=== PATIENT | female | born 1980 | race Caucasian/White ===

== ENCOUNTER 2019-07-05 15:21 | Emergency (ER) | payer BC ==
[2019-07-05] MEDS ORDERED: methylPREDNISolone Sodium Succinate 125 MG/2 ML SDV IM ONE (15:30)
[2019-07-05] MEDS ORDERED: Albuterol/Ipratropium 3.0-0.5 MG/3 ML Neb Soln NEB ONE (15:30)
--- NOTE | 2019-07-05 15:37 | EDM.PDOC ---
ED HPI GENERAL MEDICAL PROBLEM - General Chief Complaint: Respiratory Problem Stated Complaint: SHORTNESS OF BREATH, COUGH, VOMITING Time Seen by Provider: 07/05/19 15:35 Source of Information: Reports: Patient - History of Present Illness INITIAL COMMENTS - FREE TEXT/NARRATIVE: HISTORY AND PHYSICAL: History of present illness: []Patient presents with cough and shortness of breath sensation however is in no apparent distress She was seen at replaced by [facility] initially provided Z-Wade and albuterol for bronchitis, she has some improvement of symptoms however not fully resolved she does have a sinusitis on the left maxillary sinuses well with continued tenderness on palpation no fever nausea vomiting chills sweats no chest pain headache dizziness palpitation no bowel or urine symptoms Review of systems: As per history of present illness and below otherwise all systems reviewed and negative. Past medical history: As per history of present illness and as reviewed below otherwise noncontributory. Surgical history: As per history of present illness and as reviewed below otherwise noncontributory. Social history: No reported history of drug or alcohol abuse. Family history: As per history of present illness and as reviewed below otherwise noncontributory. Physical exam: HEENT: Atraumatic, normocephalic, pupils reactive, negative for conjunctival pallor or scleral icterus, mucous membranes moist, throat clear, neck supple, nontender, trachea midline. sinus tenderness maxillary sinus left greater than right Lungs: Clear to auscultation, breath sounds equal bilaterally, chest nontender. Heart: S1S2, regular, negative for clicks, rubs, or JVD. Abdomen: Soft, nondistended, nontender. Negative for masses or hepatosplenomegaly. Negative for costovertebral tenderness. Pelvis: Stable nontender. Genitourinary: Deferred. Rectal: Deferred. Extremities: Atraumatic, negative for cords or calf pain. Neurovascular unremarkable. Neuro: Awake, alert, oriented. Cranial nerves II through XII unremarkable. Cerebellum unremarkable. Motor and sensory unremarkable throughout. Exam nonfocal. Diagnostics: [Chest 1 view ] Therapeutics: [ Levaquin 750 by mouth daily 10 no refill Prednisone 20 mg by mouth daily #5 no refill [id number] symptomatic therapy Continue albuterol Phenergan with codeine impression: [] sinus situs/bronchitis Definitive disposition and diagnosis as appropriate pending reevaluation and review of above. chest Pain Score (Numeric/FACES): 5 - Related Data Allergies Allergy/AdvReac Type Severity Reaction Status Date / Time No Known Allergies Allergy Verified 07/05/19 15:28 Home Meds: Home Meds Albuterol [Proventil Neb Soln] 2 puff INH ASDIRECTED PRN 07/05/19 [History] Azithromycin [Zithromax] 1 dose PO ASDIRECTED 07/05/19 [History] Furosemide 40 mg PO DAILY 07/05/19 [History] Levothyroxine [Levothroid] 137 mcg PO DAILY 07/05/19 [History] Loratadine 10 mg PO DAILY 07/05/19 [History] Losartan [Cozaar] 50 mg PO DAILY 07/05/19 [History] Metoprolol Tartrate 100 mg PO DAILY 07/05/19 [History] Omeprazole 40 mg PO DAILY 07/05/19 [History] Potassium Chloride 10 meq PO DAILY 07/05/19 [History] ED ROS GENERAL - Review of Systems Review Of Systems: See Below ED EXAM, GENERAL - Physical Exam Exam: See Below Course - Vital Signs Last Recorded V/S: Last Vital Signs Temp 96.9 F 07/05/19 15:25 Pulse 93 07/05/19 15:25 Resp 18 07/05/19 15:25 BP 144/105 H 07/05/19 15:25 Pulse Ox 97 07/05/19 15:25 - Orders/Labs/Meds Orders: Active Orders 24 hr Category Date Time Status RT Aerosol Therapy [RC] ASDIRECTED Care 07/05/19 15:30 Active Chest 1V Frontal [CR] Stat Exams 07/05/19 15:30 Taken Meds: Medications Discontinued Medications Generic Name Dose Route Start Last Admin Trade Name Freq PRN Reason Stop Dose Admin Albuterol/Ipratropium 3 ml 07/05/19 15:30 07/05/19 15:40 Duoneb 3.0-0.5 Mg/3 Ml NEB 07/05/19 15:31 3 ml ONETIME ONE Administration Methylprednisolone Sodium Succinate 125 mg 07/05/19 15:30 07/05/19 15:52 Solu-Medrol IM 07/05/19 15:31 125 mg ONETIME ONE Administration Prednisone 20 mg 07/05/19 15:44 07/05/19 15:51 Prednisone PO 07/05/19 15:45 20 mg ONETIME ONE Administration Departure - Departure Time of Disposition: 15:56 Disposition: Home, Self-Care 01 Condition: Good Clinical Impression: Sinusitis, Bronchitis - Discharge Information Referrals: PCP,Unknown [Primary Care Provider] - Forms: ED Department Discharge Additional Instructions: Medication as prescribed Consider Kendra pot daily Zyrtec daily 10 mg Continue albuterol as needed Follow up with primary care in 2 weeks sooner as needed [facility] - Primary Care [address] [place] [id number] The following information is given to patients seen in the emergency department who are being discharged to home. This information is to outline your options for follow-up care. We provide all patients seen in our emergency department with a follow-up referral. The need for follow-up, as well as the timing and circumstances, are variable depending upon the specifics of your emergency department visit. If you don't have a primary care physician on staff, we will provide you with a referral. We always advise you to contact your personal physician following an emergency department visit to inform them of the circumstance of the visit and for follow-up with them and/or the need for any referrals to a consulting specialist. The emergency department will also refer you to a specialist when appropriate. This referral assures that you have the opportunity for follow-up care with a specialist. All of these measure are taken in an effort to provide you with optimal care, which includes your follow-up. Under all circumstances we always encourage you to contact your private physician who remains a resource for coordinating your care. When calling for follow-up care, please make the office aware that this follow-up is from your recent emergency room visit. If for any reason you are refused follow-up, please contact the [facility] emergency department at and asked to speak to the emergency department charge nurse. - My Orders Last 24 Hours: My Active Orders 07/05/19 15:30 RT Aerosol Therapy [RC] ASDIRECTED Chest 1V Frontal [CR] Stat - Assessment/Plan Last 24 Hours: My Active Orders 07/05/19 15:30 RT Aerosol Therapy [RC] ASDIRECTED Chest 1V Frontal [CR] Stat
[2019-07-05] MEDS ORDERED: predniSONE 20 MG Tab PO ONE (15:44)
--- NOTE | 2019-07-05 16:00 | CR ---
INDICATION: Pain, shortness of breath. TECHNIQUE: AP portable view of the chest. COMPARISON: None FINDINGS: Cardiomediastinal silhouette: Within limits. Lungs and pleural space: Lungs are clear. No pleural effusion. No pneumothorax. IMPRESSION: No acute pulmonary abnormality. Dictated by Heather Crystal MD @ 07/05/2019 3:58:10 PM Dictated by: Heather Crystal MD @ 07/05/2019 15:58:14 (Electronically Signed)
== END 2019-07-05 16:20 | disposition home or self-care (01) ==
LOC: MW.ED 15:21
DX: J40 Bronchitis, not specified as acute or chronic (principal); J32.9 Chronic sinusitis, unspecified; Z79.899 Other long term (current) drug therapy
CPT/HCPCS: 71045; 94640; 96372; 99283; A9270; J2930; J7620-GY

== ENCOUNTER 2019-10-19 17:50 | Emergency (ER) | payer BC ==
[2019-10-19] MEDS ORDERED: Ketorolac 60 MG/2 ML SDV IM ONE (19:28)
--- NOTE | 2019-10-19 19:36 | EDM.PDOC ---
ED HPI GENERAL MEDICAL PROBLEM - General Chief Complaint: Lower Extremity Injury/Pain Stated Complaint: SLIP AND FALL ON ICE Time Seen by Provider: 10/19/19 18:42 Source of Information: Reports: Patient History Limitations: Reports: No Limitations - History of Present Illness INITIAL COMMENTS - FREE TEXT/NARRATIVE: HISTORY AND PHYSICAL: History of present illness: Patient is a 39-year-old female who presents to the ED today with concern of right knee injury and low back pain after a fall that occurred when slipping on the ice just prior to arrival to the ED. Patient states she was walking to the mailbox when she had slipped. Patient states she landed on her right knee and then twisted her low back and caught herself on her side. Patient states she did not directly hit her low back but does feel as if her low back muscles are "spasming." Patient states she did not hit her head and she did not lose consciousness. Patient states she has a history of hypertension and hypothyroidism but denies any other health history. Patient denies any loss or retention of bowel bladder function or saddle anesthesia. Patient denies fever, chills, chest pain, shortness of breath, or cough. Denies headache, neck stiff ness, change in vision, syncope, or near syncope. Denies nausea, vomiting, abdominal pain, diarrhea, constipation, or dysuria. Has not noted any blood in urine or stool. Patient has been eating and drinking appropriately. Review of systems: As per history of present illness and below otherwise all systems reviewed and negative. Past medical history: As per history of present illness and as reviewed below otherwise noncontributory. Surgical history: As per history of present illness and as reviewed below otherwise noncontributory. Social history: See social history for further information Family history: As per history of present illness and as reviewed below otherwise noncontributory. Physical exam: General: Patient is alert, oriented, and in no acute distress. Patient sitting comfortably on exam table. HEENT: Atraumatic, normocephalic, pupils equal and reactive bilaterally, negative for conjunctival pallor or scleral icterus, mucous membranes moist, TMs normal bilaterally, throat clear, neck supple, nontender, trachea midline. No drooling or trismus noted. No meningeal signs. No hot potato voice noted. Lungs: Clear to auscultation, breath sounds equal bilaterally, chest nontender. Heart: S1S2, regular rate and rhythm without overt murmur Abdomen: Soft, nondistended, nontender. Negative for masses or hepatosplenomegaly. Negative for costovertebral tenderness. Pelvis: Stable nontender. Genitourinary: Deferred. Rectal: Deferred. Skin: Intact, warm, dry. No lesions or rashes noted. Extremities: Negative for cords or calf pain. Neurovascular unremarkable. There is a superficial abrasion of the right knee without bleeding. Patient has full range of motion of bilateral lower extremities without pain or difficulty. No obvious deformity of bilateral lower extremities. DP/PT pulses intact bilaterally with capillary refill less than 2 seconds. No obvious deformity of the complete spine. No step-offs, crepitus, or point tenderness to palpation of the complete spine. Patient does have mild to moderate discomfort with palpation of the right sided paraspinous muscle of the lumbar spine. Neuro: Awake, alert, oriented. Cranial nerves II through XII unremarkable. Cerebellum unremarkable. Motor and sensory unremarkable throughout. Exam nonfocal. Notes: Discussed importance for follow-up with a primary care provider. Voices understanding and is agreeable to plan of care. Denies any further questions or concerns at this time. Diagnostics: Lumbar XR, knee XR Therapeutics: Toradol, Norflex, Knee sleeve Prescription: Diclofenac, Flexeril Impression: Right knee contusion Low back pain/strain Plan: 1. Rest, ice, elevate the affected extremity and low back. You can apply ice and or heat 15 minutes on, 15 minutes off. 2. Tylenol and/or Ibuprofen as directed for pain management or discomfort. 3. Follow up with the primary care provider as discussed. Return to the ED as needed and as discussed. Definitive disposition and diagnosis as appropriate pending reevaluation and review of above. Back, r knee Pain Score (Numeric/FACES): 9 - Related Data Allergies Allergy/AdvReac Type Severity Reaction Status Date / Time No Known Allergies Allergy Verified 10/19/19 18:33 Home Meds: Home Meds Albuterol [Proventil Neb Soln] 2 puff INH ASDIRECTED PRN 07/05/19 [History] Azithromycin [Zithromax] 1 dose PO ASDIRECTED 07/05/19 [History] Furosemide 40 mg PO DAILY 07/05/19 [History] Levothyroxine [Levothroid] 137 mcg PO DAILY 07/05/19 [History] Loratadine 10 mg PO DAILY 07/05/19 [History] Losartan [Cozaar] 50 mg PO DAILY 07/05/19 [History] Metoprolol Tartrate 100 mg PO DAILY 07/05/19 [History] Omeprazole 40 mg PO DAILY 07/05/19 [History] Potassium Chloride 10 meq PO DAILY 07/05/19 [History] Past Medical History HEENT History: Reports: None Cardiovascular History: Reports: Hypertension Respiratory History: Reports: Bronchitis, Recurrent Gastrointestinal History: Reports: None Genitourinary History: Reports: None [employer]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 Musculoskeletal History: Reports: None Neurological History: Reports: None Psychiatric History: Reports: None Endocrine/Metabolic History: Reports: None Hematologic History: Reports: None Immunologic History: Reports: None Oncologic (Cancer) History: Reports: None Dermatologic History: Reports: None - Infectious Disease History Infectious Disease History: Reports: None - Past Surgical History Head Surgeries/Procedures: Reports: None HEENT Surgical History: Reports: Adenoidectomy, Myringotomy w Tube(s), Tonsillectomy Cardiovascular Surgical History: Reports: None Respiratory Surgical History: Reports: None GI Surgical History: Reports: Appendectomy Female Surgical History: Reports: None Endocrine Surgical History: Reports: None Neurological Surgical History: Reports: None Musculoskeletal Surgical History: Reports: None Oncologic Surgical History: Reports: None Dermatological Surgical History: Reports: None Social & Family History - Family History Family Medical History: Noncontributory - Tobacco Use Smoking Status *Q: Never Smoker Second Hand Smoke Exposure: No - Caffeine Use Caffeine Use: Reports: Coffee Review of Systems - Review of Systems Review Of Systems: Comprehensive ROS is negative, except as noted in HPI. ED EXAM, GENERAL - Physical Exam Exam: See Below (see dictation) Course - Vital Signs Last Recorded V/S: Last Vital Signs Temp 99.4 F 10/19/19 18:33 Pulse 78 10/19/19 18:33 Resp 22 H 10/19/19 18:33 BP 129/77 10/19/19 18:33 Pulse Ox 95 10/19/19 18:33 - Orders/Labs/Meds Meds: Medications Discontinued Medications Generic Name Dose Route Start Last Admin Trade Name Freq PRN Reason Stop Dose Admin Ketorolac Tromethamine 60 mg 10/19/19 19:28 10/19/19 19:46 Toradol IM 10/19/19 19:29 60 mg ONETIME ONE Administration Orphenadrine Citrate 60 mg 10/19/19 19:28 10/19/19 19:47 Norflex IM 10/19/19 19:29 60 mg ONETIME ONE Administration Departure - Departure Time of Disposition: 21:21 Disposition: Home, Self-Care 01 Clinical Impression: Knee pain Qualifiers: Chronicity: acute Laterality: right Qualified Code(s): M25.561 - Pain in right knee Low back pain Qualifiers: Chronicity: acute Back pain laterality: bilateral Sciatica presence: without sciatica Qualified Code(s): M54.5 - Low back pain - Discharge Information Referrals: Kobe Callejas MD [Primary Care Provider] - Forms: ED Department Discharge Additional Instructions: The following information is given to patients seen in the emergency department who are being discharged to home. This information is to outline your options for follow-up care. We provide all patients seen in our emergency department with a follow-up referral. The need for follow-up, as well as the timing and circumstances, are variable depending upon the specifics of your emergency department visit. If you don't have a primary care physician on staff, we will provide you with a referral. We always advise you to contact your personal physician following an emergency department visit to inform them of the circumstance of the visit and for follow-up with them and/or the need for any referrals to a consulting specialist. The emergency department will also refer you to a specialist when appropriate. This referral assures that you have the opportunity for follow-up care with a specialist. All of these measure are taken in an effort to provide you with optimal care, which includes your follow-up. Under all circumstances we always encourage you to contact your private physician who remains a resource for coordinating your care. When calling for follow-up care, please make the office aware that this follow-up is from your recent emergency room visit. If for any reason you are refused follow-up, please contact the [facility] Emergency Department at and asked to speak to the emergency department charge nurse. [facility] Primary Care [address] [place] [address] [id number] [facility] [address] [place] [address] 1. Rest, ice, elevate the affected extremity and low back. You can apply ice and or heat 15 minutes on, 15 minutes off. 2. Tylenol as directed for pain management or discomfort. Take medication as prescribed. 3. Follow up with the primary care provider as discussed. Return to the ED as needed and as discussed Sepsis Event Note - Evaluation Sepsis Screening Result: No Definite Risk - Focused Exam Vital Signs: Vital Signs Temp Pulse Resp BP Pulse Ox 10/19/19 18:33 99.4 F 78 22 H 129/77 95 Date Exam was Performed: 10/19/19 Time Exam was Performed: 21:21
--- NOTE | 2019-10-19 21:14 | CR ---
Indication: Pain following fall. Technique: Three views of the right knee. Comparison: None Findings: No acute fracture or subluxation is identified. No joint effusion is identified. Minimal narrowing of the medial compartment is identified. Impression: No acute fracture Dictated by Ann Marie Hernadez MD @ Oct 19 2019 9:13PM Signed by Dr. Ann Marie Hernadez @ Oct 19 2019 9:14PM
--- NOTE | 2019-10-19 21:16 | CR ---
Indication: Pain following fall. Technique: Three views of the lumbar spine. Comparison: None Findings: The alignment of the lumbar spine is within normal limits. The vertebral body heights are well maintained. The intervertebral disc space heights are well maintained. No acute fracture subluxation is identified. Physiologic narrowing is identified at L5-S1. Impression: No acute fracture. Dictated by Ann Marie Hernadez MD @ Oct 19 2019 9:14PM Signed by Dr. Ann Marie Hernadez @ Oct 19 2019 9:15PM
== END 2019-10-19 21:47 | disposition home or self-care (01) ==
LOC: MW.ED 17:50
DX: S39.012A Strain of muscle, fascia and tendon of lower back, initial encounter (principal); S80.01XA Contusion of right knee, initial encounter; I10 Essential (primary) hypertension; Z79.899 Other long term (current) drug therapy; W00.0XXA Fall on same level due to ice and snow, initial encounter; Y93.01 Activity, walking, marching and hiking
CPT/HCPCS: 72100; 73562; 96372; 99283; J1885; J2360